=== PATIENT | male | born 1980 | race Two or more races ===

== ENCOUNTER 2025-06-30 15:40 | Inpatient (IN) | payer MEDICAID, SELFPAY ==
[2025-06-30 15:43] VITALS: BP 116/76; PULSE 84; RESP 16; TEMP 36.6; O2SAT 97; BMI 29.7
[2025-06-30 15:53] VITALS: PULSE 86; RESP 18; O2SAT 99
--- NOTE | 2025-06-30 16:03 | PD.EDABDPN ---
ED Abdominal Pain RME/HPI General Chief Complaint: Abdominal Pain Stated complaint: ABD PAIN Time seen by provider: 06/30/25 15:59 Arrival date/time: 06/30/25 15:40 RME / HPI RME / HPI narrative: 45 year old male with history of cholecystectomy 6 years ago otherwise no other chronic medical hx reported presents to the ED BIBA from home for evaluation of epigastric abdominal pain beginning this morning. No radiation. Described as a burning sensation, rating 7/10 in severity. Accompanied by nausea and one episode of watery diarrhea. Denies taking any medications at home. Denies fever, chills, sweating. Denies chest pain, cough, shortness of breath. Denies vomiting. Denies dysuria, urinary frequency and urgency. Related Data Home Medications ?Medication ?Instructions ?Recorded ?Confirmed No Known Home Medications 07/01/25 07/01/25 Allergies Allergy/AdvReac Type Severity Reaction Status Date / Time shrimp Allergy Severe throat Verified 07/01/25 07:09 demetrius Review of Systems Review of Systems Systems Reviewed: All systems reviewed, normal except as documented Past Medical History Past Medical History CARDIAC: Negative Congestive Heart Failure RESPIRATORY: Negative Chronic Obstructive Pulmonary Disease (COPD) GASTROINTESTINAL: Positive Gall Bladder Disease GENITOURINARY: Negative Renal Disease ENDOCRINE: Negative Diabetes Mellitus Type 1 or Diabetes Mellitus Type 2 Social History SMOKING STATUS: Never smoker ED Exam Narrative Physical exam: GENERAL APPEARANCE: alert and oriented x 4, well-developed, well-nourished, diaphoretic HEENT: Normocephalic, atraumatic; pupils equal, round, reactive to light; EOMI; mucous membranes pink, moist; oropharynx clear NECK: Supple LUNGS: CTABL; no wheezes, no rales, no rhonchi HEART: Regular rate, regular rhythm; normal S1, S2; no murmurs ABDOMEN: non distended; normal BS; soft, epigastric and RUQ tenderness with mild guarding, no rebound; no masses, no organomegaly, no hernia BACK: no CVA tenderness EXTREMITIES: atraumatic; no edema NEUROLOGIC: awake; alert and oriented x4; cranial nerves II-XII grossly intact; no focal sensory or motor deficits PSYCHIATRIC: appropriate mood and affect SKIN: Increased warmth, diaphoretic, normal color; no rashes Course Quality Measures none Orders Category Date Time Status COVID-19 Screening Questionnaire NOW Care 06/30/25 20:37 Completed Decision to Admit X1 Care 06/30/25 20:37 Completed EKG (ED ONLY) *Do not use* NOW Care 06/30/25 16:15 Completed Insert IV NOW Care 06/30/25 16:27 Completed NPO NOW Care 06/30/25 20:44 Completed Consult to General Surgery Stat Cons 06/30/25 20:[address] abdomen pelvis wo con Stat Exams 06/30/25 18:42 Completed EKG (ED Only) Stat Exams 06/30/25 16:15 Draft US abdomen limited Stat Exams 06/30/25 17:30 Completed Alcohol, Blood Medical Stat Lab 06/30/25 16:29 Completed Amylase Stat Lab 06/30/25 16:29 Completed Bilirubin,Direct Stat Lab 06/30/25 16:29 Completed CBC Stat Lab 06/30/25 16:24 Completed Comprehensive Metabolic Panel Stat Lab 06/30/25 16:24 Completed Drug Screen,Urine Stat Lab 06/30/25 19:34 Completed Lipase Stat Lab 06/30/25 16:24 Completed Magnesium Stat Lab 06/30/25 16:24 Completed Troponin I Stat Lab 06/30/25 16:24 Completed UA, C/S IF [Urinalysis, C/S if Indicated] Stat Lab 06/30/25 19:34 Completed Urine Culture Stat Lab 06/30/25 19:34 Completed Cefoxitin [Mefoxin] 2 gm Med 07/01/25 06:00 Discontinued SODIUM CHLORIDE 0.9% (Popper) [Ns 0.9% (P)] 50 ml IV Q6HR Cefoxitin [Mefoxin] 2 gm Med 06/30/25 21:30 Discontinued SODIUM CHLORIDE 0.9% (Popper) [Ns 0.9% (P)] 50 ml IV X1 Famotidine Inj [Pepcid Inj] Med 06/30/25 18:41 Discontinued 20 mg IVP X1 ONE HYDROmorphone INJ [Dilaudid Inj] Med 06/30/25 18:41 Discontinued 1 mg IVP X1 ONE Morphine Inj Med 06/30/25 16:15 Discontinued 5 mg IVP X1 ONE Ondansetron Inj [Zofran Inj] Med 06/30/25 16:15 Discontinued 4 mg IVP X1 ONE Pantoprazole Inj [Protonix Inj] Med 06/30/25 18:41 Discontinued 40 mg IVP X1 ONE Piper/Tazo 3.375 gm Premix [Zosyn] Med 06/30/25 20:31 Discontinued 3.375 gm in 50 ml IV X1 Sodium Chloride 0.9% 1000 ml [Ns] 1,000 ml Med 06/30/25 16:15 Discontinued IV 999 mls/hr Sodium Chloride 0.9% 1000 ml [Ns] 1,000 ml Med 06/30/25 17:29 Discontinued IV 999 mls/hr Vital Signs Vital signs: Vital Signs Temperature 97.9 F 06/30/25 15:43 Pulse Rate 84 06/30/25 15:43 Respiratory Rate 16 06/30/25 15:43 Blood Pressure 116/76 06/30/25 15:43 Pulse Oximetry (%) 97 06/30/25 15:43 Oxygen Delivery Method Room Air 06/30/25 15:43 Pulse ox is 97% on room air which is adequate. Abdominal Pain MDM MDM Narrative MDM Narrative:: Cora Seaman am scribing for and in the presence of Dr. Bess. 1800: Patient signed out to Dr. Willson pending labs, imaging, and final disposition. Patient data External records reviewed:: EMS form Clinical information provided by:: patient and EMS Social determinants that could affect healthcare access:: none Patient has the following chronic illnesses:: s/p cholecystectomy How is presenting disease/condition affected by chronic disease/condition?: uneffected by Evaluation data The following diagnostics were reviewed and interpreted by me:: lab results Lab and/or radiology exams considered but not ordered:: None Interpretation Summary: leukocytosis at 15.2 Total bili 2.8, no previous for comparison Medications / Prescriptions Medications or Prescriptions considered but not ordered:: None Medication administrations:: Medication Administration History Discontinued Medications Acetaminophen (Acetaminophen 325 Mg Tablet) 650 mg PO Q6H PRN PRN Reason: Fever >101.5 Stop: 07/30/25 22:18 Hydrocodone Bitart/Acetaminophen (Hydrocodone/Apap 5/325 Tablet) 1 tab PO Q6HR PRN PRN Reason: PAIN SCALE 4-10(Mod-Sev Stop: 07/06/25 09:09 Hydrocodone Bitart/Acetaminophen (Hydrocodone/Apap 5/325 Tablet) 1 tab PO Q6HR PRN PRN Reason: PAIN SCALE 4-6 Stop: 07/06/25 09:09 Last Admin: 07/03/25 11:00 Dose: 1 tab Documented By: Admin: 07/03/25 03:21 Dose: 1 tab Documented By: Admin: 07/02/25 16:04 Dose: 1 tab Documented By: Admin: 07/02/25 03:05 Dose: 1 tab Documented By: YULY Bupivacaine HCl (Bupivacaine Mpf 0.5% 30 Ml Vial) Confirm Administered Dose 30 ml .ROUTE .STK-MED ONE Stop: 07/01/25 07:12 Dexamethasone Sodium Phosphate (Dexamethasone Sod Phos Inj 10 Mg/Ml Vial) Confirm Administered Dose 10 mg .ROUTE .STK-MED ONE Stop: 07/01/25 06:49 Docusate Sodium (Docusate Sod 100 Mg Capsule) 100 mg PO BID DANYELLE; Protocol Stop: 07/31/25 09:09 Last Admin: 07/03/25 08:18 Dose: 100 mg Documented By: Admin: 07/02/25 20:08 Dose: 100 mg Documented By: Admin: 07/02/25 08:22 Dose: 100 mg Documented By: Admin: 07/01/25 20:22 Dose: 100 mg Documented By: Admin: 07/01/25 09:29 Dose: 100 mg Documented By: augustus Esmolol HCl (Esmolol Inj 10 Mg/Ml Vial 10 Ml) Confirm Administered Dose 100 mg .ROUTE .STK-MED ONE Stop: 07/01/25 09:46 Famotidine (Famotidine Inj 10 Mg/Ml Vial 2 Ml) 20 mg IVP X1 ONE Stop: 06/30/25 18:42 Last Admin: 06/30/25 18:59 Dose: 20 mg Documented By: PIPO Fentanyl Citrate (Fentanyl Cit Inj 50 Mcg/Ml Amp 2ml) Confirm Administered Dose 200 mcg .ROUTE .STK-MED ONE Stop: 07/01/25 06:48 Fentanyl Citrate (Fentanyl Cit Inj 50 Mcg/Ml Amp 2ml) Confirm Administered Dose 100 mcg .ROUTE .STK-MED ONE Stop: 07/01/25 07:47 Gentamicin Sulfate (Gentamicin Inj 40 Mg/Ml Vial 2 Ml) Confirm Administered Dose 160 mg .ROUTE .STK-MED ONE Stop: 07/01/25 07:46 Hydromorphone HCl (Hydromorphone Inj 2 Mg/Ml Vial) 1 mg IVP X1 ONE Stop: 06/30/25 18:42 Last Admin: 06/30/25 18:58 Dose: 1 mg Documented By: PIPO Sodium Chloride (Ns) 1,000 mls @ 999 mls/hr IV .Q1H1M ONE Stop: 06/30/25 17:15 Last Infusion: 06/30/25 17:26 Dose: Infused Documented By: Admin: 06/30/25 16:45 Dose: 999 mls/hr Documented By: JOSE GUADALUPE Sodium Chloride (Ns) 1,000 mls @ 999 mls/hr IV .Q1H1M ONE Stop: 06/30/25 18:29 Last Infusion: 06/30/25 19:05 Dose: Infused Documented By: Admin: 06/30/25 18:04 Dose: 999 mls/hr Documented By: PIPO Piperacillin/Tazobactam/Dextrose (Zosyn) 3.375 gm in 50 mls @ 100 mls/hr IV X1 ONE Stop: 06/30/25 21:00 Last Infusion: 06/30/25 21:30 Dose: Infused Documented By: Admin: 06/30/25 21:00 Dose: 100 mls/hr Documented By: IKER Cefoxitin Sodium 2 gm/ Sodium (Chloride) 50 mls @ 100 mls/hr IV Q6HR DANYELLE Stop: 07/08/25 05:59 Last Admin: 07/03/25 12:10 Dose: Not Given Documented By: KHANH Non-Admin Reason: patient discharged Admin: 07/03/25 05:14 Dose: 100 mls/hr Documented By: Infusion: 07/02/25 23:39 Dose: Infused Documented By: Admin: 07/02/25 23:09 Dose: 100 mls/hr Documented By: Infusion: 07/02/25 17:44 Dose: Infused Documented By: Admin: 07/02/25 17:14 Dose: 100 mls/hr Documented By: Infusion: 07/02/25 11:55 Dose: Infused Documented By: Admin: 07/02/25 11:25 Dose: 100 mls/hr Documented By: Infusion: 07/02/25 05:47 Dose: Infused Documented By: Admin: 07/02/25 05:17 Dose: 100 mls/hr Documented By: Infusion: 07/01/25 23:30 Dose: Infused Documented By: Admin: 07/01/25 23:00 Dose: 100 mls/hr Documented By: Infusion: 07/01/25 17:37 Dose: Infused Documented By: Admin: 07/01/25 17:07 Dose: 100 mls/hr Documented By: augustus Infusion: 07/01/25 13:14 Dose: Infused Documented By: augustus Admin: 07/01/25 12:44 Dose: 100 mls/hr Documented By: augustus Infusion: 07/01/25 05:30 Dose: Infused Documented By: augustus Admin: 07/01/25 05:00 Dose: 100 mls/hr Documented By: YULY Cefoxitin Sodium 2 gm/ Sodium (Chloride) 50 mls @ 100 mls/hr IV X1 ONE Stop: 06/30/25 21:59 Last Infusion: 06/30/25 22:20 Dose: Infused Documented By: Admin: 06/30/25 21:50 Dose: 100 mls/hr Documented By: KEVYN Acetaminophen (Ofirmev Inj) Confirm Administered Dose 100 mls @ ud IV .STK-MED ONE Stop: 07/01/25 06:56 Magnesium Sulfate (Magnesium Sulfate Ivpb) 4 gm in 50 mls @ 12.5 mls/hr IV X1 ONE Stop: 07/01/25 12:28 Last Admin: 07/01/25 09:28 Dose: 12.5 mls/hr Documented By: augustus Potassium Chloride 20 meq/ (Dextrose/Lactated Ringer's) 1,010 mls @ 100 mls/hr IV .Q10H6M DANYELLE Stop: 07/31/25 09:09 Last Admin: 07/02/25 08:21 Dose: Not Given Documented By: JESSIE Non-Admin Reason: Discontinued Admin: 07/01/25 22:40 Dose: 100 mls/hr Documented By: Infusion: 07/01/25 19:40 Dose: Infused Documented By: Admin: 07/01/25 09:34 Dose: 100 mls/hr Documented By: augustus Lidocaine HCl (Lidocaine Inj Pf 1% 2 Ml Vial) Confirm Administered Dose 2 ml .ROUTE .STK-MED ONE Stop: 07/01/25 06:54 Lidocaine HCl (Lidocaine Jelly 2% 5 Ml Tube) Confirm Administered Dose 5 ml .ROUTE .STK-MED ONE Stop: 07/01/25 06:56 Morphine Sulfate (Morphine Sulf Inj 10 Mg/Ml Vial) 5 mg IVP X1 ONE Stop: 06/30/25 16:16 Last Admin: 06/30/25 16:47 Dose: 5 mg Documented By: JOSE GUADALUPE Morphine Sulfate (Morphine Sulf Inj 10 Mg/Ml Vial) 2 mg IVP Q3H PRN PRN Reason: PAIN SCALE 7-10 (Severe Stop: 07/05/25 22:24 Morphine Sulfate (Morphine Sulf Inj 4 Mg/Ml Vial) 2 mg IVP Q3H PRN PRN Reason: PAIN SCALE 7-10 (Severe Stop: 07/05/25 22:24 Last Admin: 07/02/25 09:52 Dose: 2 mg Documented By: JESSIE Ondansetron HCl (Ondansetron Inj 2 Mg/Ml Inj 2 Ml) 4 mg IVP X1 ONE Stop: 06/30/25 16:16 Last Admin: 06/30/25 16:46 Dose: 4 mg Documented By: JOSE GUADALUPE Ondansetron HCl (Ondansetron Inj 2 Mg/Ml Inj 2 Ml) 4 mg IVP Q6H PRN; Protocol PRN Reason: NAUSEA OR VOMITING Stop: 07/30/25 22:18 Pantoprazole Sodium (Pantoprazole Inj 40 Mg Vial) 40 mg IVP X1 ONE Stop: 06/30/25 18:42 Last Admin: 06/30/25 18:58 Dose: 40 mg Documented By: PIPO Phenylephrine HCl (Phenylephrine Inj 10 Mg/Ml Vial) Confirm Administered Dose 10 mg .ROUTE .STK-MED ONE Stop: 07/01/25 06:49 Potassium Phos/Sodium Phos (Naph,[facility] Mbdb 1 Packet (1.5 Gm)) 1 packet PO X1 ONE Stop: 07/02/25 08:25 Last Admin: 07/02/25 08:36 Dose: 1 packet Documented By: JESSIE Propofol (Propofol Inj 10 Mg/Ml Vial 20 Ml) Confirm Administered Dose 200 mg IV .STK-MED ONE Stop: 07/01/25 06:48 Rocuronium [place] (Rocuronium Inj 10 Mg/Ml Vial 10 Ml) Confirm Administered Dose 100 mg .ROUTE .STK-MED ONE Stop: 07/01/25 06:48 Sugammadex Sodium (Sugammadex Inj 100 Mg/Ml 2ml Vial) Confirm Administered Dose 200 mg .ROUTE .STK-MED ONE Stop: 07/01/25 07:49 See above Consultations Consultation(s) initiated? (list below): No Diagnosis Differential diagnosis abdominal pain: abdominal pain, gastroenteritis and other (cholelithiasis, cholecystitis) Most likely diagnosis given after review of the tests above:: Abdominal pain Admission Indicated Admission indicated?: not indicated Explain why admission is indicated or not indicated:: Signed out pending final dispo. Admission Request Was there a request for admission?: No Disposition Plan Disposition Plan: other (specify) (signed out ) Discharge Plan Plan Patient Disposition: Admit Acute Care w/in Hospital Problem List Clinical Impression: Appendicitis
--- NOTE | 2025-06-30 16:15 | EKG_ITS ---
[facility] Test Date: 2025-06-30 Pat Name: YOMI BATRES Department: Room: - Gender: Male Contact Center Associate: : 1980 Requested By: Dora Maldonado Order Number: [id number] Reading MD: Dora Maldonado Measurements Intervals [place] Rate: 88 P: 64 CA: 179 QRS: 88 QRSD: 80 T: 53 QT: 359 QTc: 435 Interpretive Statements SINUS RHYTHM No previous ECG available for comparison /store/S0/[id number]/ecg/[id number].pdf
[2025-06-30 16:39] LABS: Basophils # (Auto) 0.0 Thou/mm3 (0.0-0.2); Basophils % (Auto) 0 % (0-2.5); Eosinophils # (Auto) 0.2 Thou/mm3 (0.0-0.5); Eosinophils % (Auto) 1 % (0-10); Hematocrit 49.7 % (41.0-53.0); Hemoglobin 17.3 g/dL (13.5-16.0); Immature Granulocytes Auto 0.05 Thou/mm3 (0.00-0.00); Lymphocytes # (Auto) 1.2 Thou/mm3 (1.0-4.8); Lymphocytes % (Auto) 8 % (10-50); Mean Corpuscular HGB Conc 34.8 g/dl (31.0-37.0); Mean Corpuscular Hemoglobin 30.5 pg (25.0-35.0); Mean Corpuscular Volume 88 fL (80-100); Monocytes # (Auto) 0.7 Thou/mm3 (0.0-0.8); Monocytes % (Auto) 4 % (0-12); Neutrophils # (Auto) 13.1 Thou/mm3 (1.8-7.7); Neutrophils % (Auto) 86 % (37-80); Nucleated Red Blood Cell # 0.00 Thou/mm3 (0.00-0.00); Nucleated Red Blood Cell % 0 /100 WBC (0); Platelet Count 221 Thou/mm3 (140-440); RDW Standard Deviation 41.0 fL (35.1-43.9); Red Blood Count 5.68 Miln/mm3 (4.50-5.90); White Blood Count 15.2 Thou/mm3 (3.8-10.6)
[2025-06-30] MEDS: SODIUM CHLORIDE 0.9% 1000 ML 1,000 ML 999 ML IV ×2 (16:45→18:04)
[2025-06-30] MEDS: ONDANSETRON INJ 2 MG/ML INJ 2 ML 4 MG IVP (16:46)
[2025-06-30] MEDS: MORPHINE SULF INJ 10 MG/ML VIAL 5 MG IVP (16:47)
[2025-06-30 16:58] LABS: Alanine Aminotransferase 20 U/L (10-49); Albumin, Serum 4.6 gm/dL (3.5-5.0); Albumin/Globulin Ratio 1.9 (1.2-2.2); Alkaline Phosphatase 99 U/L (46-116); Anion Gap 13 (7-16); Aspartate Amino Transferase 19 U/L (0-34); BUN/Creatinine Ratio 14 Ratio (12-20); Bilirubin,Total 2.8 mg/dL (0.3-1.2); Blood Urea Nitrogen 10 mg/dL (9-23); Calcium 10.0 mg/dL (8.3-10.6); Calcium (Corrected) 10.0 mg/dL (8.5-10.1); Carbon Dioxide 24.3 mMol/L (20.0-31.0); Chloride 103 mMol/L (98-107); Creatinine (Component) 0.7 mg/dL (0.6-1.3); Estimated Creatinine Clearance 139.7 mL/min (>60); Globulin 2.4 gm/dL (2.3-3.5); Glucose 114 mg/dL (74-106); Lipase 22 U/L (12-53); Magnesium 1.9 mg/dL (1.6-2.6); Osmolality,Calculated 279 (275-295); Potassium 3.5 mMol/L (3.4-5.1); Sodium 140 mMol/L (136-145); Total Protein 7.0 gm/dL (5.7-8.2); Troponin I < 0.002 ng/mL (0.0-0.045); eGFR > 60 See Note
--- NOTE | 2025-06-30 17:30 | XR_ITS ---
Examination: Abdomen sonogram, Limited Date and time of exam: June 30, 2025, 1948 hrs. Indications: Right upper abdominal pain today Technique: Real-time jara scale transabdominal sonographic images of the upper abdomen obtained. Findings: Absent gallbladder Common bile duct 0.7 cm no stones. Pancreatic head 3.0 cm. Liver 18.1 cm fatty infiltration no focal liver lesions. Normal hepatopedal portal venous flow. Patent IVC. Impression: Mildly prominent common bile duct 0.7 cm, clinical correlation advised. If biliary colic is a clinical consideration, recommend MRCP follow-up
--- NOTE | 2025-06-30 18:06 | PC.NURSE ---
patient BIBA for abdominal pain that started yesterday. Patient describes pain as sharp and burning sensation, denies N/V/D or melena. Patient alert and oreinted, New IV started. Morphine given for pain. vital signs stable at this time
--- NOTE | 2025-06-30 18:26 | PD.EDADDENDU ---
Emergency Room Addendum <Nika Castellano - Last Filed: 06/30/25 21:35> Addendum Narrative: I took over the care from Dr. Bess at 6 PM on 06/30/2025, see her notes for complete H&P and ED course. I reviewed all diagnostic test results. My review of the abdominal ultrasound report is NAD. My review of the CT abdomen pelvis report is appendicitis. At this point, diagnoses include: 1. Acute appendicitis Treatment here from me included: 1. Pepcid 2. Dilaudid 3. Protonix 4. Zosyn I discussed the case with our general surgeon and hospitalist. About the presentation and exam and diagnostics and treatments here. And need of further care in the hospital. Will accept the patient. Brien Willson MD <Brien Willson MD - Last Filed: 07/01/25 01:40> Addendum Narrative: I took over the care from Dr. Bess at 6 PM on 06/30/2025, see her notes for complete H&P and ED course. I reviewed all diagnostic test results. At this point, diagnoses include: 1. Acute appendicitis Treatment here from me included: IV fluid and pain meds and Zosyn I discussed the case with our general surgeon (Dr. Ram) and our hospitalist service. About the presentation and exam and diagnostics and treatments here. And need of further care in the hospital. Will accept the patient. Brien Willson MD
--- NOTE | 2025-06-30 18:42 | XR_ITS ---
Examination: CT abdomen and pelvis without contrast. Coronal 3-D reconstructions. Sagittal 2-D reconstructions. Date and time of exam:August 30, 2025 1911 hrs. Indications: Nausea vomiting abdominal pain diarrhea today CTDI: vol (mGy): 8.72 DLP: (mGycm): 573 Technique: Axial images of the abdomen have been obtained, 3 mm slice thickness Intravenous contrast material has not been administered. Low dose protocols were performed. One or more of the following dose reduction techniques were used; automated exposure control, adjustment of the mA and/or KV according to patient size, use of iterative reconstruction technique. Findings: No focal liver or splenic lesions Fatty infiltration throughout the liver Absent gallbladder No pancreatic or adrenal mass 4 mm left 3 mm 1 mm right renal calculi, no hydronephrosis or ureteral calculi Aorta normal size No bowel obstruction No nonspecific colitis or diverticulitis pattern Fluid-filled enlarged appendix, coronal images 73 through 59 with appendicolith and prominent periappendiceal inflammatory change No pelvic abscess Urinary bladder is intact Impression: Bilateral renal calculi Acute appendicitis, no localized perforation or pelvic abscess
[2025-06-30 18:50] VITALS: BP 119/87; PULSE 106; RESP 18; O2SAT 98
[2025-06-30] MEDS: HYDROmorphone INJ 2 MG/ML VIAL 1 MG IVP (18:58)
[2025-06-30] MEDS: FAMOTIDINE INJ 10 MG/ML VIAL 2 ML 20 MG IVP (18:59)
[2025-06-30 19:29] VITALS: BP 107/65; PULSE 97; RESP 16; TEMP 36.8; O2SAT 96
[2025-06-30 19:47] LABS: Collection Type, Urine Clean Catch; RBC,Urine 0 /hpf (0-3)
[2025-06-30 19:56] LABS: Amorphous Crystals,Urine Present (Absent); Bacteria,Urine 3+; Bilirubin,Urine Negative (Negative); Blood,Urine Negative (Negative); Clarity,Urine Clear (Clear/Hazy); Color,Urine Yellow (Lt Yel-Yel); Glucose, Urine Negative (Negative); Ketones,Urine 3+ (Negative); Leukocyte Esterase,Urine Negative (Negative); Nitrite,Urine Negative (Negative); PH,Urine 5.5 (5.0-7.0); Protein,Urine Negative (Neg - Trace); Specific Gravity,Urine 1.026 (1.001-1.035); Squamous Epithelial Cell,Urine < 1 /hpf (0-5); Urobilinogen,Urine Negative mg/dL (0.0-1.0); WBC,Urine 2 /hpf (0-5)
[2025-06-30 20:05] LABS: Culture Indicated,Urine Yes; Sperm,Urine Present
[2025-06-30 20:15] LABS: Amphetamine/Methamp Scrn,U Positive (Negative); Barbiturate Screen,Urine Negative (Negative); Benzodiazepines Screen,Urine Negative (Negative); Benzoylecgonine Screen, Ur Negative (Negative); Fentanyl Screen,Urine Negative (Negative); Opiate Screen,Urine Positive (Negative); THC Screen,Urine Negative (Negative)
[2025-06-30 21:00] VITALS: BP 103/65; PULSE 94; RESP 16; TEMP 37.1; O2SAT 95
[2025-06-30] MEDS: PIPER/TAZO 3.375 GM PREMIX 3.375 GM/50 ML BAG IV (21:00)
[2025-06-30 21:19] LABS: Alcohol, Blood Medical < 3.0 mg/dL (0-10.0); Bilirubin,Direct 0.8 mg/dL (0.0-0.3)
[2025-06-30 21:35] LABS: Amylase 92 U/L (30-118)
[2025-06-30] MEDS: CEFOXITIN 2 GM in SODIUM CHLORIDE 0.9% (Popper) 50 ML IV (21:50)
--- NOTE | 2025-06-30 22:37 | PD.RESHP ---
Documentation for date of: 06/30/25 [facility] History of Present Illness Chief complaint: Abdominal pain History of present illness: Patient is a 45 year-old with no significant past medical history presented to the ED on 06/30/2025 with chief complain of abdominal pain. Patient reports progressively worse abdominal pain that started on sunday last week. Patient took Tums but noted no alleviation of pain. Reports sharp, burning abdominal pain, rated 8 out of 10 intensity. Associated with nausea and 1 episode of watery diarrhea this morning. Patient denies vomiting, fever, chills, sweating, chest pain, shortness of breath and urinary frequency and urgency. ED Course: -Initial vitals were BP 116/66, pulse 84, RR 16, temp 97.9, O2 sat 97% on room air. -Labs significant for WBC 15.2, hemoglobin 17.8, T. bili 2.8, T. bili 0.8. Urine tox positive for opiates and methamphetamine -Imaging included abdominal ultrasound that showed absent gallbladder, abd/pelvis CT bilateral renal calculi, making appendicitis with no localized perforation of pelvic abscess. -In the ED, patient was given 1 L of NS, Zofran, 5mg morphine, 1mg hydromorphone, Protonix, famotidine, Zosyn -Patient was admitted for acute appendicitis evaluation and management Review of Systems Review of systems otherwise negative except what is mentioned above. Past Medical History: Unremarkable Family History: Diabetes mellitus in family Surgical History: cholecystectomy Social History: Denies history of smoking, denies recreational drug use (however utox (+) amphetamine). Occasional social drinker. Current Medications: Allergies: Shrimp Exam Vital Signs Temp Pulse Resp BP Pulse Ox O2 Del Method 98.7 F 94 16 103/65 95 Room Air 06/30/25 21:06/30/25 21:00 06/30/25 21:06/30/25 21:06/30/25 21:06/30/25 21:00 Narrative Exam General: Alert, moderate distress and ill appearing Skin: Warm, dry, intact. No rash or ecchymoses. Head: Normocephalic, atraumatic. Eye: Normal conjunctiva, PERRL. Throat: Oral mucosa moist. No obvious lesions in oropharynx. Cardiovascular: Regular rate and rhythm, no murmur, +S1/S2. Respiratory: Lungs are clear to auscultation, respirations unlabored, no crackles, no wheezing. Gastrointestinal: McBurney's point tenderness, rebound tendernes. Extremities: No edema, no cyanosis, no clubbing. Neuro: Alert and oriented x3.No focal deficits observed. Conversant, moving all extremities. No overt cerebellar signs/incoordination. Psychiatric: Cooperative, appropriate affect Results: Labs 07/01/25 04:28 07/01/25 04:28 Labs: Short CBC 06/30/25 Range/Units 16:24 WBC 15.2 H (3.8-10.6) Thou/mm3 Hgb 17.3 H (13.5-16.0) g/dL Hct 49.7 (41.0-53.0) % Plt Count 221 (140-440) Thou/mm3 BMP 06/30/25 16:24 Sodium 140 Potassium 3.5 Chloride 103 Carbon Dioxide 24.3 BUN 10 Creatinine 0.7 Glucose 114 H Calcium 10.0 Cardiac Enzymes 06/30/25 Range/Units 16:24 Troponin I < 0.002 (0.0-0.045) ng/mL Liver Function 06/30/25 06/30/25 Range/Units 16:24 16:29 Total Bilirubin 2.8 H (0.3-1.2) mg/dL Direct Bilirubin 0.8 H (0.0-0.3) mg/dL AST 19 (0-34) U/L ALT 20 (10-49) U/L Alkaline Phosphatase 99 (46-116) U/L Albumin 4.6 (3.5-5.0) gm/dL Urine 06/30/25 Range/Units 19:34 Urine Color Yellow (Lt Yel-Yel) Urine Clarity Clear (Clear/Hazy) Urine pH 5.5 (5.0-7.0) Ur Specific [place] 1.026 (1.001-1.035) Urine Protein Negative (Neg - Trace) Urine Glucose (UA) Negative (Negative) Quality Measures Quality Measures none Medications Home Medications and Allergies Home Medications ?Medication ?Instructions ?Recorded ?Confirmed ?Type No Known Home Medications 07/01/25 07/01/25 History Allergies Allergy/AdvReac Type Severity Reaction Status Date / Time shrimp Allergy Severe throat Verified 07/01/25 07:09 swells Visit Medications Acetaminophen (Acetaminophen 325 Mg Tablet) 650 mg PO Q6H PRN PRN Reason: Fever >101.5 Stop: 07/30/25 22:18 Cefoxitin Sodium 2 gm/ Sodium (Chloride) 50 mls @ 100 mls/hr IV Q6HR DANYELLE Stop: 07/08/25 00:00 Morphine Sulfate (Morphine Sulf Inj 10 Mg/Ml Vial) 2 mg IVP Q3H PRN PRN Reason: PAIN SCALE 7-10 (Severe Stop: 07/05/25 22:24 Ondansetron HCl (Ondansetron Inj 2 Mg/Ml Inj 2 Ml) 4 mg IVP Q6H PRN; Protocol PRN Reason: NAUSEA OR VOMITING Stop: 07/30/25 22:18 Discontinued Medications Famotidine (Famotidine Inj 10 Mg/Ml Vial 2 Ml) 20 mg IVP X1 ONE Stop: 06/30/25 18:42 Last Admin: 06/30/25 18:59 Dose: 20 mg Hydromorphone HCl (Hydromorphone Inj 2 Mg/Ml Vial) 1 mg IVP X1 ONE Stop: 06/30/25 18:42 Last Admin: 06/30/25 18:58 Dose: 1 mg Sodium Chloride (Ns) 1,000 mls @ 999 mls/hr IV .Q1H1M ONE Stop: 06/30/25 17:15 Last Infusion: 06/30/25 17:26 Dose: Infused Sodium Chloride (Ns) 1,000 mls @ 999 mls/hr IV .Q1H1M ONE Stop: 06/30/25 18:29 Last Infusion: 06/30/25 19:05 Dose: Infused Piperacillin/Tazobactam/Dextrose (Zosyn) 3.375 gm in 50 mls @ 100 mls/hr IV X1 ONE Stop: 06/30/25 21:00 Last Infusion: 06/30/25 21:30 Dose: Infused Cefoxitin Sodium 2 gm/ Sodium (Chloride) 50 mls @ 100 mls/hr IV X1 ONE Stop: 06/30/25 21:59 Last Infusion: 06/30/25 22:20 Dose: Infused Morphine Sulfate (Morphine Sulf Inj 10 Mg/Ml Vial) 5 mg IVP X1 ONE Stop: 06/30/25 16:16 Last Admin: 06/30/25 16:47 Dose: 5 mg Ondansetron HCl (Ondansetron Inj 2 Mg/Ml Inj 2 Ml) 4 mg IVP X1 ONE Stop: 06/30/25 16:16 Last Admin: 06/30/25 16:46 Dose: 4 mg Pantoprazole Sodium (Pantoprazole Inj 40 Mg Vial) 40 mg IVP X1 ONE Stop: 06/30/25 18:42 Last Admin: 06/30/25 18:58 Dose: 40 mg Assessment & Plan Plan Patient is a 45 year-old with no significant past medical history presented to the ED on 06/30/2025 with chief complain of abdominal pain. Admitted for acute appendicitis and management #Acute Appendicitis Patient presentation of significant right lower quadrant pain with rebound tenderness at McBurney's point along with signs and symptoms of nausea, elevated WBC 15.2, T.bilirubin 2.8, D.Bilirubin 9.8. and abd /pelvis CT findings strongly suggest appendicitis. LFT within normal limit. Amylse 92, Lipase 22 CT abd/pelvis: showed fluid-filled enlarged appendix, with appendicolith and prominent periappendiceal inflammatory changes. No localized perforation or pelvic abscees. Abd US: Mildly prominent common bile duct 0.7 cm and absent gallbladder - IV morphine 5mg Q3H for pain - Zofran for nausea - Surgery Dr. Ram consulted started on cefoxitin 2gm IV pt n.p.o. possible surgery tomorrow - aPTT,PT and INR - continue to CMP #CT finding of Bilateral Renal calcuci Incidental finding of bilateral renal calculi on CT abdominal/pelvis. Patient has no active symptoms of urinary frequency and dysuria, hematuria, flank pain that might suggest nephrolithiasis. -Continue to monitor #Methamphetamine abuse Counseled regarding meth use and need to stop immediately #Hyperbilirubinemia Mild, possibly 2/2 substance use Continue to monitor Hospital management: Lines: peripheral IV Diet: NPO GI prophylaxis: pantoprazole DVT prophylaxis: SCDs Disposition: med surg acute appendicitis CODE STATUS: Full code Patient seen and assessed under supervision of attending physician . Carleen Zavaleta MD PGY-1, Internal Medicine Please note: this document was transcribed using voice recognition technology; minor inaccuracies may be present. Attending Provider Attestation/Addendum After examination of the patient and review of the clinical data I feel that this patient needs admission to the hospital for further treatment/evaluation. I Violette Squires MD, attest that I was physically present for simms portions of evaluation, and examined patient, labs and imagings and plan of care were discussed with IM residents team, and I agree with the findings and plans documented above.
[2025-06-30 22:50] VITALS: PULSE 106; RESP 24; RESP 96
[2025-07-01] VITALS (14 sets, daily range): BP systolic 94–125; BP diastolic 55–80; PULSE 72–115; RESP 14–94; TEMP 35.6–37.6; O2SAT 92–99; BMI 31.6
--- NOTE | 2025-07-01 04:46 | PC.NURSE ---
Report received, pt arrived to room 377 via gurney with significant other at side, alert/oriented call light placed within reach
[2025-07-01] MEDS: CEFOXITIN 2 GM in SODIUM CHLORIDE 0.9% (Popper) 50 ML IV ×4 (05:00→23:00)
[2025-07-01 06:18] LABS: Basophils # (Auto) 0.0 Thou/mm3 (0.0-0.2); Basophils % (Auto) 0 % (0-2.5); Eosinophils # (Auto) 0.0 Thou/mm3 (0.0-0.5); Eosinophils % (Auto) 0 % (0-10); Hematocrit 49.2 % (41.0-53.0); Hemoglobin 16.8 g/dL (13.5-16.0); Immature Granulocytes Auto 0.09 Thou/mm3 (0.00-0.00); Lymphocytes # (Auto) 1.3 Thou/mm3 (1.0-4.8); Lymphocytes % (Auto) 6 % (10-50); Mean Corpuscular HGB Conc 34.1 g/dl (31.0-37.0); Mean Corpuscular Hemoglobin 30.8 pg (25.0-35.0); Mean Corpuscular Volume 90 fL (80-100); Monocytes # (Auto) 1.2 Thou/mm3 (0.0-0.8); Monocytes % (Auto) 6 % (0-12); Neutrophils # (Auto) 18.6 Thou/mm3 (1.8-7.7); Neutrophils % (Auto) 88 % (37-80); Nucleated Red Blood Cell # 0.00 Thou/mm3 (0.00-0.00); Nucleated Red Blood Cell % 0 /100 WBC (0); Platelet Count 216 Thou/mm3 (140-440); RDW Standard Deviation 42.5 fL (35.1-43.9); Red Blood Count 5.46 Miln/mm3 (4.50-5.90); White Blood Count 21.2 Thou/mm3 (3.8-10.6)
[2025-07-01 06:36] LABS: Alanine Aminotransferase 17 U/L (10-49); Albumin, Serum 4.7 gm/dL (3.5-5.0); Albumin/Globulin Ratio 2.0 (1.2-2.2); Alkaline Phosphatase 94 U/L (46-116); Anion Gap 15 (7-16); Aspartate Amino Transferase 13 U/L (0-34); BUN/Creatinine Ratio 8 Ratio (12-20); Bilirubin,Total 4.0 mg/dL (0.3-1.2); Blood Urea Nitrogen 7 mg/dL (9-23); Calcium 9.7 mg/dL (8.3-10.6); Calcium (Corrected) 9.7 mg/dL (8.5-10.1); Carbon Dioxide 25.3 mMol/L (20.0-31.0); Chloride 98 mMol/L (98-107); Creatinine (Component) 0.9 mg/dL (0.6-1.3); Estimated Creatinine Clearance 111.9 mL/min (>60); Globulin 2.3 gm/dL (2.3-3.5); Glucose 106 mg/dL (74-106); Magnesium 1.5 mg/dL (1.6-2.6); Osmolality,Calculated 273 (275-295); Phosphorous 3.1 mg/dL (2.4-5.1); Potassium 3.6 mMol/L (3.4-5.1); Sodium 138 mMol/L (136-145); Total Protein 7.0 gm/dL (5.7-8.2); eGFR > 60 See Note
[2025-07-01 06:49] LABS: INR 1.1 (0.9-1.3); Partial Thromboplastin Time 30.4 Seconds (22.0-36.0); Prothrombin Time 11.9 Seconds (9.0-12.2)
--- NOTE | 2025-07-01 07:00 | PC.NURSE ---
Report given to delia
--- NOTE | 2025-07-01 07:10 | PD.SURCONS ---
HPI Consult details Consult date: 06/30/25 Reason for consultation narrative: Right lower quadrant abdominal pain with nausea and vomiting History of present illness: 45-year-old male presented to the emergency department for acute onset of abdominal pain. His pain started 2 days ago and epigastric and periumbilical region. Since earlier today his pain has become persistent and progressively worse, now localized over right lower quadrant. He has had nausea and episode of emesis, but denies fever, chills, constipation or dysuria. She denies having similar symptoms in the past with no recent history of trauma. Review of Systems Constitutional Constitutional: Denies chills and Denies fever(s) Cardiovascular Cardiovascular: Denies chest pain Respiratory Respiratory: Denies cough Gastrointestinal Gastrointestinal: Reports abdominal pain, Reports nausea and Reports vomiting Genitourinary Genitourinary: Denies difficulty urinating Hematologic/Lymphatic Hematologic/Lymphatic: Denies easy bleeding and Denies easy bruising Past Medical History Surgical History OTHER SURGICAL HX: Cholecystectomy, tonsillectomy Social History SMOKING STATUS: Never smoker SUBSTANCE USE: does not use ALCOHOL: Current Meds Home Medications and Allergies Home Medications ?Medication ?Instructions ?Recorded ?Confirmed ?Type No Known Home Medications 07/01/25 07/01/25 History Allergies Allergy/AdvReac Type Severity Reaction Status Date / Time shrimp Allergy Severe throat Verified 07/01/25 07:09 swells Exam Vital Signs Temp Pulse Resp BP Pulse Ox O2 Del Method 99.7 F 115 H 18 125/66 98 Room Air 07/01/25 04:00 07/01/25 04:00 07/01/25 04:00 07/01/25 04:00 07/01/25 04:00 07/01/25 04:00 Constitutional Constitutional: no acute distress Routine Abdominal Exam Abdominal: Present soft, normoactive bowel sounds and tenderness (Right lower quadrant tenderness to palpation with guarding, no rebound tenderness or peritonitis at this time); Absent distended Results Results: Imaging CT scan - abdomen: report reviewed and image reviewed CT scan - pelvis: report reviewed and image reviewed Assessment & Plan Problem List (1) Appendicitis: Status: Acute Plan Keep patient n.p.o. with IV fluids and IV antibiotics and plan for laparoscopic possible open appendectomy. Risks include but not limited to infection, bleeding, injury to bowel, bladder, surround neurovascular structures, abdominal sepsis and or abdominal abscess, need for further procedure and or operation discussed with the patient. Benefits and alternatives explained to him, all his questions answered, he agreed and consented to proceed with the operation. (1) Appendicitis Qualifiers: Acute appendicitis type: unspecified acute appendicitis type Appendicitis type: acute appendicitis Qualified Code(s): K35.80 - Unspecified acute appendicitis
--- NOTE | 2025-07-01 08:11 | SUR.PHASEI ---
0811 Patient arrived to recovery resting comfortably in [facility], on oxygen 8L via oxy mask with an oral airway in place, breathing unlabored, vital signs stable, dressing intact to abdomen; dermabond, no bleeding noted, report received from Dr. Brown and Jennie HERNANDES
--- NOTE | 2025-07-01 08:12 | ESOP_ITS ---
Date of Procedure 07/01/25 Pre Op Diagnosis Acute appendicitis Post Op Diagnosis Acute gangrenous appendicitis with localized peritonitis Procedure Laparoscopic appendectomy Findings Dilated and gangrenous appendix with localized peritonitis and fibrinous exudates, without perforation Procedure Description Patient was brought into the operating room in supine position. After administration of general endotracheal anesthesia, abdomen was prepped and draped in standard surgical manner. A Veress needle was inserted through the umbilicus and pneumoperitoneum was obtained up to 15 mmHg. The Veress needle was removed and a 5 mm umbilical incision was made. A 5 mm trocar was placed and laparoscopic camera was inserted. Under direct visualization a laparoscopic camera a 5 mm trocar placed in suprapubic region and a 10 mm trocar placed in left lower quadrant. The abdomen was inspected, the cecum was identified and followed until the appendix was identified. The appendix was noted to be significantly dilated and gangrenous with fibrinous exudates, but without perforation. A window was created between the appendix and mesoappendix and the appendix was divided near the appendix and cecal junction with blue Endo FIDENCIO stapling device. The mesoappendix was divided with jara Endo FIDENCIO stapling device. The appendix was placed inside an Endo Catch and removed from the abdomen utilizing left lower quadrant trocar site. Abdomen and pelvis copiously and thoroughly washed and irrigated, all the fluids were suctioned and the sucti oned fluid returned clear. Hemostasis was adequate and satisfactory, staple lines were intact without bleeding or any leakage. Left lower quadrant trocar sites fascial defect was closed with 0 Vicryl using Endo closure device. Instruments and trocars removed, pneumoperitoneum was evacuated and the incisions closed with 4-0 Monocryl subcuticular fashion. Instruments, needles and sponge counts were reported to be correct ??2. Patient tolerated the procedure well, was extubated, breathing spontaneously and without difficulty and was transferred to postanesthesia care in stable condition. Anesthesia GETA and local Pathology / specimen Other (Appendix) Estimated Blood Loss 20 Condition Stable Disposition PACU Surgeon Maya Ram MD Surgical Staff Operation Date: 07/01/25 07:00 <No data on this case meets the specified criteria>
--- NOTE | 2025-07-01 08:36 | SUR.PHASEI ---
0836 Report given to Kandi RN, patient meets discharge criteria from recovery resting comfortably in [facility], on oxygen 2L via nasal cannula, breathing unlabored, vital signs stable, denies pain, eating ice chips; tolerating well
--- NOTE | 2025-07-01 08:45 | SUR.PHASEI ---
0836 Report given to Kandi RN, patient meets discharge crieria from recovery, resting comfortably in [place], on oxygen 2L via nasal cannula, breathing unlabored, vital signs stable, denies pain, dressing intact; no bleeding noted, eating ice chips; tolerating well 0845 Patient transported via gurney to room 377 without incident
[2025-07-01] MEDS: Magnesium Sulfate 4 GM Ivpb 4 GM/50 ML BAG IV (09:28)
[2025-07-01] MEDS: DOCUSATE SOD 100 MG CAPSULE PO ×2 (09:29→20:22)
[2025-07-01] MEDS: POT CHL ADDITIVE 20 MEQ in DEXTROSE 5%-LACTATED RINGERS 1,000 ML 100 MEQ IV ×2 (09:34→22:40)
--- NOTE | 2025-07-01 11:55 | ESPR_ITS ---
<Statement entered by Graham Baker MD - 07/01/25 17:00> 45-year-old with no significant past medical history apparently has not seen a PCP in several years presenting to the ED on 06/30 with abdominal pain. Pain apparently started earlier that day and progressively worsened and was localized over the right lower quadrant. Patient denied having any nausea or vomiting during episodes. In the ED CT abdomen pelvis showed fluid-filled enlarged appendix with appendicolith prominent periappendiceal inflammatory changes. General surgery was consulted on 07/01 completed laparoscopic appendectomy with a postoperative diagnosis of acute gangrenous appendicitis with localized peritonitis. Patient was seen bedside with no concerning symptoms; however, appears tired. Will continue IV antibiotics and close monitoring for 48 hours and discharge when stable. I have personally seen and examined the patient. I agree with the resident's assessment and plan as documented below. Graham Baker DO PGY-2 Internal Medicine - GME Documentation for date of: 07/01/25 Subjective Subjective Interval history: No acute events overnight. Patient seen and examined at bedside this AM. S/p lap appendectomy for gangrenous appendicitis by surgeon Dr. Ram. Was tired and drowsy from surgery. Endorsed mild soreness, no other complaints. Has not yet passed gas but bowel sounds positive on exam. Will continue IV antibiotics and close monitoring for 48 hours and discharge home when stable. Labs and vitals were reviewed. WBC elevated 12.2 prior to surgery, anticipate decrease with IV antibiotics and status post surgery. Potassium 3.6, started on KCl additive 20 mEq. Magnesium 1.5, repleted with IV mag sulfate 4 g. Total bili 4.0, again prior to surgery. Will reevaluate labs tomorrow morning. Review of systems otherwise negative except what is mentioned above. Exam Vital Signs Temp Pulse Resp BP Pulse Ox O2 Del Method O2 Flow Rate 98.4 F 103 H 15 113/69 99 Room Air 2 07/01/25 08:41 07/01/25 08:41 07/01/25 08:41 07/01/25 08:41 07/01/25 08:41 07/01/25 04:00 07/01/25 08:41 Narrative Exam Physical Exam General: Awake and in no acute distress. Mildly somnolent but non-toxic appearing. Obese. HEENT: Normocephalic, atraumatic, mucous membranes moist. Heart: Regular rate and rhythm, normal S1 and S2, no murmurs. Lungs: Clear to auscultation with no wheezing or crackles. Abdomen: Soft, nondistended, nontender, positive bowel sounds. No guarding or rebound tenderness. Incision on left lower abdomen. Wound clean, dry, and intact. No swelling or erythema. Neurologic: Alert and oriented x3, no gross neurological deficit, and patient able to move all 4 extremities. Extremities: No edema. Skin: No rash or ecchymoses. Objective Labs 07/02/25 04:48 07/02/25 04:48 Labs: Laboratory Results - last 24 hr 06/30/25 06/30/25 06/30/25 16:24 16:29 19:34 WBC 15.2 H RBC 5.68 Hgb 17.3 H Hct 49.7 MCV 88 MCH 30.5 MCHC 34.8 RDW Std Deviation 41.0 Plt Count 221 Neut % (Auto) 86 H Lymph % (Auto) 8 L [place] % (Auto) 4 Eos % (Auto) 1 Baso % (Auto) 0 Neut # (Auto) 13.1 H Lymph # (Auto) 1.2 [place] # (Auto) 0.7 Eos # (Auto) 0.2 Baso # (Auto) 0.0 Immature Gran # (Auto) 0.05 H Absolute Nucleated RBC 0.00 Immature Gran % 0 Nucleated RBC % 0 PT INR APTT Sodium 140 Potassium 3.5 Chloride 103 Carbon Dioxide 24.3 Anion Gap 13 BUN 10 Creatinine 0.7 Estim Creat Clear Calc 139.7 eGFR > 60 BUN/Creatinine Ratio 14 Glucose 114 H Calculated Osmolality 279 Calcium 10.0 Corrected Calcium 10.0 Phosphorus Magnesium 1.9 Total Bilirubin 2.8 H Direct Bilirubin 0.8 H AST 19 ALT 20 Alkaline Phosphatase 99 Troponin I < 0.002 Total Protein 7.0 Albumin 4.6 Globulin 2.4 Albumin/Globulin Ratio 1.9 Amylase 92 Lipase 22 Ur Collection Type Clean Catch Urine Color Yellow Urine Clarity Clear Urine pH 5.5 Ur Specific [place] 1.026 Urine Protein Negative Urine Glucose (UA) Negative Urine Ketones 3+ A Urine Blood Negative Urine Nitrite Negative Urine Bilirubin Negative Urine Urobilinogen (Auto) Negative Ur Leukocyte Esterase Negative Urine RBC 0 Urine WBC 2 Ur Squamous Epith Cells < 1 Amorphous Crystals Present A Urine Bacteria 3+ A Urine Sperm Present A Ur Culture Indicated? Yes Urine Opiates Screen Positive A Urine Fentanyl Screen Negative Ur Barbiturates Screen Negative U Amphetamin/Meth Scrn Positive A U Benzodiazepines Scrn Negative U Cocaine Metab Screen Negative U Marijuana (THC) Screen Negative Ethyl Alcohol < 3.0 07/01/25 04:28 WBC 21.2 H D RBC 5.46 Hgb 16.8 H Hct 49.2 MCV 90 MCH 30.8 MCHC 34.1 RDW Std Deviation 42.5 Plt Count 216 Neut % (Auto) 88 H Lymph % (Auto) 6 L [place] % (Auto) 6 Eos % (Auto) 0 Baso % (Auto) 0 Neut # (Auto) 18.6 H Lymph # (Auto) 1.3 [place] # (Auto) 1.2 H Eos # (Auto) 0.0 Baso # (Auto) 0.0 Immature Gran # (Auto) 0.09 H Absolute Nucleated RBC 0.00 Immature Gran % 0 Nucleated RBC % 0 PT 11.9 INR 1.1 APTT 30.4 Sodium 138 Potassium 3.6 Chloride 98 Carbon Dioxide 25.3 Anion Gap 15 BUN 7 L Creatinine 0.9 Estim Creat Clear Calc 111.9 eGFR > 60 BUN/Creatinine Ratio 8 L Glucose 106 Calculated Osmolality 273 L Calcium 9.7 Corrected Calcium 9.7 Phosphorus 3.1 Magnesium 1.5 L Total Bilirubin 4.0 H D Direct Bilirubin AST 13 ALT 17 Alkaline Phosphatase 94 Troponin I Total Protein 7.0 Albumin 4.7 Globulin 2.3 Albumin/Globulin Ratio 2.0 Amylase Lipase Ur Collection Type Urine Color Urine Clarity Urine pH Ur Specific [place] Urine Protein Urine Glucose (UA) Urine Ketones Urine Blood Urine Nitrite Urine Bilirubin Urine Urobilinogen (Auto) Ur Leukocyte Esterase Urine RBC Urine WBC Ur Squamous Epith Cells Amorphous Crystals Urine Bacteria Urine Sperm Ur Culture Indicated? Urine Opiates Screen Urine Fentanyl Screen Ur Barbiturates Screen U Amphetamin/Meth Scrn U Benzodiazepines Scrn U Cocaine Metab Screen U Marijuana (THC) Screen Ethyl Alcohol Quality Measures Quality Measures none Assessment & Plan Assessment Current Active Medications: Generic Name Dose Route Start Last Admin Trade Name Freq PRN Reason Stop Dose Admin Acetaminophen 650 mg 06/30/25 22:19 Acetaminophen 325 Mg Tablet PO 07/30/25 22:18 Q6H PRN Fever >101.5 Hydrocodone Bitart/Acetaminophen 1 tab 07/01/25 09:15 Hydrocodone/Apap 5/325 Tablet PO 07/06/25 09:09 Q6HR PRN PAIN SCALE 4-6 Docusate Sodium 100 mg 07/01/25 09:10 07/01/25 09:29 Docusate Sod 100 Mg Capsule PO 07/31/25 09:09 100 mg BID DANYELLE Administration Protocol Cefoxitin Sodium 2 gm/ Sodium 50 mls @ 100 mls/hr 07/01/25 06:00 07/01/25 05:00 Chloride IV 07/08/25 05:59 100 mls/hr Q6HR DANYELLE Administration Magnesium Sulfate 4 gm in 50 mls @ 12.5 mls/hr 07/01/25 08:29 07/01/25 09:28 Magnesium Sulfate Ivpb IV 07/01/25 12:28 12.5 mls/hr X1 ONE Administration Potassium Chloride 20 meq/ 1,010 mls @ 100 mls/hr 07/01/25 09:10 07/01/25 09:34 Dextrose/Lactated Ringer's IV 07/31/25 09:09 100 mls/hr .Q10H6M DANYELLE Administration Morphine Sulfate 2 mg 06/30/25 22:25 Morphine Sulf Inj 10 Mg/Ml Vial IVP 07/05/25 22:24 Q3H PRN PAIN SCALE 7-10 (Severe Ondansetron HCl 4 mg 06/30/25 22:19 Ondansetron Inj 2 Mg/Ml Inj 2 Ml IVP 07/30/25 22:18 Q6H PRN NAUSEA OR VOMITING Protocol Plan Patient is a 45 year old male with PMH of meth abuse who presents on 06/30 for epigastric pain and nausea/vomiting, admitted for acute gangrenous appendicitis. #Acute gangrenous appendicitis #S/p lap appendectomy Presented with significant RLQ pain with rebound tenderness at McBurney's point. Endorsed nausea and vomiting. Admission WBC 15.2, T.bilirubin 2.8, direct bili 0.8. LFT, amylase, and lipase WNL. CT A/P shows fluid-filled enlarged appendix, with appendicolith and prominent periappendiceal inflammatory change. No localized perforation or pelvic abscees. Abd US shows mildly prominent common bile duct 0.7 cm and absent gallbladder. Consulted surgeon Dr. Ram, completed lap appendectomy this morning. Keep for at least 48 hours. Plan: - Cefoxitin 2gm IV - IV morphine 5mg Q3H for pain - Zofran for nausea - Antigo 5 q6hr - KCL additive 20 mEq IV - Surgery Dr. Ram consulted, appreciate recommendations - Clear liquid diet post surgery #Bilateral renal calculi Incidental finding of bilateral renal calculi on CT abdominal/pelvis. Patient has no active symptoms of urinary frequency and dysuria, hematuria, flank pain. -CTM -Encourage adequate hydration Health Maintenance Disposition: med surg s/p appendectomy for gangrenous appendicitis DVT prophylaxis: SCDs GI prophylaxis: protonix Diet: Clear liquid CODE STATUS: FULL Patient plan of care was discussed with the resident, Dr. Baker, and attending physician, Dr. Mariee. Pat Castillo, PGY-1 Attending Provider Attestation/Addendum I, Rita Mariee DO, attest that I was physically present for the simms portions of the service and evaluated the patient with the resident and I reviewed and discussed the case with the resident and agree with the resident's findings and plans of care as documented above Patient seen and evaluated this AM. Patient was admitted for appendicitis and is now s/p lap appendectomy. Patient was found to have acute gangrenous appendicitis. Will continue with IV abx at this time. pain control as needed. Patient denies pain and reports that he is tired. Incisions appear CDI. Diet to be advanced by surgeon.
--- NOTE | 2025-07-01 19:22 | PC.NURSE ---
Pt resting in bed c/o abd pain 4/10 declines for pain medication, bowel sounds active, per pt passing gas. Encouraged to call if pain not tolerable pt verbalized understanding.
[2025-07-02] VITALS (7 sets, daily range): BP systolic 106–128; BP diastolic 50–79; PULSE 70–96; RESP 16–96; TEMP 36–37; O2SAT 94–98
[2025-07-02] MEDS: HYDROcodone/APAP 5/325 TABLET 1 TAB PO ×2 (03:05→16:04)
[2025-07-02] MEDS: CEFOXITIN 2 GM in SODIUM CHLORIDE 0.9% (Popper) 50 ML IV ×4 (05:17→23:09)
[2025-07-02 05:37] LABS: Basophils # (Auto) 0.0 Thou/mm3 (0.0-0.2); Basophils % (Auto) 0 % (0-2.5); Eosinophils # (Auto) 0.0 Thou/mm3 (0.0-0.5); Eosinophils % (Auto) 0 % (0-10); Hematocrit 46.1 % (41.0-53.0); Hemoglobin 15.7 g/dL (13.5-16.0); Immature Granulocytes Auto 0.06 Thou/mm3 (0.00-0.00); Lymphocytes # (Auto) 1.4 Thou/mm3 (1.0-4.8); Lymphocytes % (Auto) 8 % (10-50); Mean Corpuscular HGB Conc 34.1 g/dl (31.0-37.0); Mean Corpuscular Hemoglobin 30.7 pg (25.0-35.0); Mean Corpuscular Volume 90 fL (80-100); Monocytes # (Auto) 1.0 Thou/mm3 (0.0-0.8); Monocytes % (Auto) 6 % (0-12); Neutrophils # (Auto) 15.6 Thou/mm3 (1.8-7.7); Neutrophils % (Auto) 86 % (37-80); Nucleated Red Blood Cell # 0.00 Thou/mm3 (0.00-0.00); Nucleated Red Blood Cell % 0 /100 WBC (0); Platelet Count 208 Thou/mm3 (140-440); RDW Standard Deviation 43.5 fL (35.1-43.9); Red Blood Count 5.12 Miln/mm3 (4.50-5.90); White Blood Count 18.2 Thou/mm3 (3.8-10.6)
--- NOTE | 2025-07-02 06:01 | PC.NURSE ---
A [facility] down time occured 07/02/25 [id number]
[2025-07-02 06:10] LABS: Alanine Aminotransferase 11 U/L (10-49); Albumin, Serum 4.1 gm/dL (3.5-5.0); Albumin/Globulin Ratio 1.8 (1.2-2.2); Alkaline Phosphatase 78 U/L (46-116); Anion Gap 11 (7-16); Aspartate Amino Transferase < 10 U/L (0-34); BUN/Creatinine Ratio 7 Ratio (12-20); Bilirubin,Total 1.8 mg/dL (0.3-1.2); Blood Urea Nitrogen < 5 mg/dL (9-23); Calcium 9.5 mg/dL (8.3-10.6); Calcium (Corrected) 9.5 mg/dL (8.5-10.1); Carbon Dioxide 27.2 mMol/L (20.0-31.0); Chloride 105 mMol/L (98-107); Creatinine (Component) 0.7 mg/dL (0.6-1.3); Estimated Creatinine Clearance 143.8 mL/min (>60); Globulin 2.3 gm/dL (2.3-3.5); Glucose 113 mg/dL (74-106); Magnesium 2.0 mg/dL (1.6-2.6); Osmolality,Calculated 283 (275-295); Phosphorous 2.1 mg/dL (2.4-5.1); Potassium 3.9 mMol/L (3.4-5.1); Sodium 143 mMol/L (136-145); Total Protein 6.4 gm/dL (5.7-8.2); eGFR > 60 See Note
[2025-07-02] MEDS: DOCUSATE SOD 100 MG CAPSULE PO ×2 (08:22→20:08)
[2025-07-02] MEDS: NAPH,KPH MBDB 1 PACKET (1.5 GM) PO (08:36)
[2025-07-02] MEDS: MORPHINE SULF INJ 4 MG/ML VIAL 2 MG IVP (09:52)
--- NOTE | 2025-07-02 12:11 | PC.SS ---
Late note 07-01-25: SS met with patient regarding his d/c plan. Pt is alert/oriented. Pt was admitted for Abdominal Pain. Pt confirmed demographic and contact information is correct on facesheet. Pt resides with ficelia and roommate. Pt ambulates independently without assistance or DME. Pt is ok with all ADLs. Pt is currently on 2 liters of O2. Pt does not utilizes O2 at home. Patient?s pharmacy of choice is [facility] on [email or web address] in [place]. Pt named his Claritza ware, phone# [phone] medical decision maker if he is unable. Patient?s choice is to return home upon d/c. Pt states not diabetic and is not on dialysis. D/C plan: Return home Next of Kin: chaz Hansen, phone# [phone] PCP: [facility] Address: Correct on facesheet
--- NOTE | 2025-07-02 13:18 | PD.SURPROG ---
Documentation for date of: 07/02/25 Subjective Subjective Narrative: Pt is seen and examined. Pain is improving. He is tolerating clear liquids. Exam Vital Signs Temp Pulse Resp BP Pulse Ox O2 Del Method O2 Flow Rate 97.0 F 76 16 124/67 95 Room Air 1.5 07/02/25 07:40 07/02/25 07:40 07/02/25 07:40 07/02/25 07:40 07/02/25 07:40 07/02/25 07:40 07/01/25 18:14 Constitutional Constitutional: no acute distress Routine Abdominal Exam Abdominal: Present soft, normoactive bowel sounds, tenderness (mild lower abdominal tenderness to palpation) and distended (minimally distended. Incisions clean, dry and intact) Assessment & Plan Assessment Additional comments: POD#1 s/p laparoscopic appendectomy Plan Continue IV antibiotics. Advance diet. May discharge home tomorrow if WBC normalizes. PROCEDURES: Procedures Laparoscopic appendectomy
--- NOTE | 2025-07-02 13:49 | ESPR_ITS ---
<Statement entered by Graham Baker MD - 07/02/25 15:15> Patient seen and assessed in hospital bed reporting improvement of abdominal pain status post appendectomy for gangrenous appendix. Patient is status postop day 1 from appendectomy and is progressing well. Apparently patient has been able to ambulate from hospital bed to chair and is passing flatus. At this time, patient appears slightly somnolent but is able to answer questions appropriately and states that he feels better than yesterday. Will continue IV antibiotics and monitor the patient for any alarming signs or symptoms. I have personally seen and examined the patient. I agree with the resident's assessment and plan as documented below. Graham Baker DO PGY-2 Internal Medicine - [facility] Documentation for date of: 07/02/25 Subjective Subjective Interval history: No acute events overnight. No new complaints this morning. WBC downtrending. Will continue IV antibiotics. Encouraged ambulation today. Consulted surgeon Dr. Ram who advanced diet and agreed with discharge tomorrow if WBC continues to improve. Exam Vital Signs Temp Pulse Resp BP Pulse Ox O2 Del Method O2 Flow Rate 97.0 F 76 16 124/67 95 Room Air 1.5 07/02/25 07:40 07/02/25 07:40 07/02/25 07:40 07/02/25 07:40 07/02/25 07:40 07/02/25 07:40 07/01/25 18:14 Narrative Exam Physical Exam General: Awake and in no acute distress. Mildly somnolent but non-toxic appearing. Obese. HEENT: Normocephalic, atraumatic, mucous membranes moist. Heart: Regular rate and rhythm, normal S1 and S2, no murmurs. Lungs: Clear to auscultation with no wheezing or crackles. Abdomen: Soft, nondistended, nontender, positive bowel sounds. No guarding or rebound tenderness. Incision on left lower abdomen. Wound clean, dry, and intact. No swelling or erythema. Neurologic: Alert and oriented x3, no gross neurological deficit, and patient able to move all 4 extremities. Extremities: No edema. Skin: No rash or ecchymoses. Objective Labs 07/03/25 05:34 07/03/25 07:31 Labs: Laboratory Results - last 24 hr 07/02/25 04:48 WBC 18.2 H RBC 5.12 Hgb 15.7 Hct 46.1 MCV 90 MCH 30.7 MCHC 34.1 RDW Std Deviation 43.5 Plt Count 208 Neut % (Auto) 86 H Lymph % (Auto) 8 L Spink % (Auto) 6 Eos % (Auto) 0 Baso % (Auto) 0 Neut # (Auto) 15.6 H Lymph # (Auto) 1.4 Spink # (Auto) 1.0 H Eos # (Auto) 0.0 Baso # (Auto) 0.0 Immature Gran # (Auto) 0.06 H Absolute Nucleated RBC 0.00 Immature Gran % 0 Nucleated RBC % 0 Sodium 143 Potassium 3.9 Chloride 105 Carbon Dioxide 27.2 Anion Gap 11 BUN < 5 L Creatinine 0.7 Estim Creat Clear Calc 143.8 eGFR > 60 BUN/Creatinine Ratio 7 L Glucose 113 H Calculated Osmolality 283 Calcium 9.5 Corrected Calcium 9.5 Phosphorus 2.1 L Magnesium 2.0 Total Bilirubin 1.8 H D AST < 10 ALT 11 Alkaline Phosphatase 78 Total Protein 6.4 Albumin 4.1 D Globulin 2.3 Albumin/Globulin Ratio 1.8 Quality Measures Quality Measures none Assessment & Plan Assessment Current Active Medications: Generic Name Dose Route Start Last Admin Trade Name Freq PRN Reason Stop Dose Admin Acetaminophen 650 mg 06/30/25 22:19 Acetaminophen 325 Mg Tablet PO 07/30/25 22:18 Q6H PRN Fever >101.5 Hydrocodone Bitart/Acetaminophen 1 tab 07/01/25 09:15 07/02/25 03:05 Hydrocodone/Apap 5/325 Tablet PO 07/06/25 09:09 1 tab Q6HR PRN Administration PAIN SCALE 4-6 Docusate Sodium 100 mg 07/01/25 09:10 07/02/25 08:22 Docusate Sod 100 Mg Capsule PO 07/31/25 09:09 100 mg BID DANYELLE Administration Protocol Cefoxitin Sodium 2 gm/ Sodium 50 mls @ 100 mls/hr 07/01/25 06:00 07/02/25 11:25 Chloride IV 07/08/25 05:59 100 mls/hr Q6HR DANYELLE Administration Morphine Sulfate 2 mg 07/01/25 13:47 07/02/25 09:52 Morphine Sulf Inj 4 Mg/Ml Vial IVP 07/05/25 22:24 2 mg Q3H PRN Administration PAIN SCALE 7-10 (Severe Ondansetron HCl 4 mg 06/30/25 22:19 Ondansetron Inj 2 Mg/Ml Inj 2 Ml IVP 07/30/25 22:18 Q6H PRN NAUSEA OR VOMITING Protocol Plan Patient is a 45 year old male with PMH of meth abuse who presents on 06/30 for epigastric pain and nausea/vomiting, admitted for acute gangrenous appendicitis. #Acute gangrenous appendicitis #S/p lap appendectomy Presented with significant RLQ pain with rebound tenderness at McBurney's point. Endorsed nausea and vomiting. Admission WBC 15.2, T.bilirubin 2.8, direct bili 0.8. LFT, amylase, and lipase WNL. CT A/P shows fluid-filled enlarged appendix, with appendicolith and prominent periappendiceal inflammatory change. No localized perforation or pelvic abscees. Abd US shows mildly prominent common bile duct 0.7 cm and absent gallbladder. Consulted surgeon Dr. Ram, completed lap appendectomy this morning. Keep for at least 48 hours. Plan: - Cefoxitin 2gm IV - IV morphine 5mg Q3H for pain - Zofran for nausea - [place] 5 q6hr - Surgery Dr. Ram consulted, appreciate recommendations: doing well, anticipate discharge tomorrow if WBC continues to improve - Advance diet as tolerated #Bilateral renal calculi Incidental finding of bilateral renal calculi on CT abdominal/pelvis. Patient has no active symptoms of urinary frequency and dysuria, hematuria, flank pain. -CTM -Encourage adequate hydration Health Maintenance Disposition: med surg s/p appendectomy for gangrenous appendicitis DVT prophylaxis: SCDs GI prophylaxis: protonix Diet: Regular CODE STATUS: FULL Patient plan of care was discussed with the resident, Dr. Baker, and attending physician, Dr. Mariee. Pat Castillo, PGY-1 Attending Provider Attestation/Addendum Rita Seaman, DO, attest that I was physically present for the simms portions of the service and evaluated the patient with the resident and I reviewed and discussed the case with the resident and agree with the resident's findings and plans of care as documented above Patient seen and eval this a.m. No acute events overnight. He states that he is feeling well. He has minimal pain at this time. Incisions are clean dry and intact. Patient is tolerating diet and passing gas. Continue with IV antibiotics at this time. Anticipate discharge in the next 24 hours. Encourage patient to ambulate.
[2025-07-03] VITALS: BP 92/59; PULSE 77; RESP 17; TEMP 36.6; O2SAT 96
[2025-07-03] MEDS: HYDROcodone/APAP 5/325 TABLET 1 TAB PO ×2 (03:21→11:00)
[2025-07-03 03:56] VITALS: PULSE 85; RESP 20; RESP 98
[2025-07-03 04:00] VITALS: BP 112/60; PULSE 65; RESP 18; TEMP 36.3; O2SAT 97
[2025-07-03] MEDS: CEFOXITIN 2 GM in SODIUM CHLORIDE 0.9% (Popper) 50 ML IV (05:14)
[2025-07-03 06:36] LABS: Basophils # (Auto) 0.0 Thou/mm3 (0.0-0.2); Basophils % (Auto) 0 % (0-2.5); Eosinophils # (Auto) 0.2 Thou/mm3 (0.0-0.5); Eosinophils % (Auto) 3 % (0-10); Hematocrit 43.8 % (41.0-53.0); Hemoglobin 14.7 g/dL (13.5-16.0); Immature Granulocytes Auto 0.01 Thou/mm3 (0.00-0.00); Lymphocytes # (Auto) 1.9 Thou/mm3 (1.0-4.8); Lymphocytes % (Auto) 24 % (10-50); Mean Corpuscular HGB Conc 33.6 g/dl (31.0-37.0); Mean Corpuscular Hemoglobin 30.3 pg (25.0-35.0); Mean Corpuscular Volume 90 fL (80-100); Monocytes # (Auto) 0.5 Thou/mm3 (0.0-0.8); Monocytes % (Auto) 7 % (0-12); Neutrophils # (Auto) 5.4 Thou/mm3 (1.8-7.7); Neutrophils % (Auto) 67 % (37-80); Nucleated Red Blood Cell # 0.00 Thou/mm3 (0.00-0.00); Nucleated Red Blood Cell % 0 /100 WBC (0); Platelet Count 180 Thou/mm3 (140-440); RDW Standard Deviation 43.8 fL (35.1-43.9); Red Blood Count 4.85 Miln/mm3 (4.50-5.90); White Blood Count 8.1 Thou/mm3 (3.8-10.6)
[2025-07-03 07:05] VITALS: PULSE 65; RESP 18; RESP 99
[2025-07-03 08:00] VITALS: BP 110/66; PULSE 71; RESP 18; TEMP 36.3; O2SAT 93
[2025-07-03] MEDS: DOCUSATE SOD 100 MG CAPSULE PO (08:18)
[2025-07-03 09:05] LABS: Alanine Aminotransferase 14 U/L (10-49); Albumin, Serum 4.0 gm/dL (3.5-5.0); Albumin/Globulin Ratio 1.7 (1.2-2.2); Alkaline Phosphatase 71 U/L (46-116); Anion Gap 10 (7-16); Aspartate Amino Transferase 13 U/L (0-34); BUN/Creatinine Ratio 9 Ratio (12-20); Bilirubin,Total 1.1 mg/dL (0.3-1.2); Blood Urea Nitrogen 7 mg/dL (9-23); Calcium 9.2 mg/dL (8.3-10.6); Calcium (Corrected) 9.2 mg/dL (8.5-10.1); Carbon Dioxide 29.2 mMol/L (20.0-31.0); Chloride 104 mMol/L (98-107); Creatinine (Component) 0.8 mg/dL (0.6-1.3); Estimated Creatinine Clearance 125.9 mL/min (>60); Globulin 2.3 gm/dL (2.3-3.5); Glucose 86 mg/dL (74-106); Magnesium 1.9 mg/dL (1.6-2.6); Osmolality,Calculated 281 (275-295); Phosphorous 4.2 mg/dL (2.4-5.1); Potassium 3.6 mMol/L (3.4-5.1); Sodium 143 mMol/L (136-145); Total Protein 6.3 gm/dL (5.7-8.2); eGFR > 60 See Note
--- NOTE | 2025-07-03 11:06 | ESDS_ITS ---
<Statement entered by Graham Baker MD - 07/03/25 13:58> 45-year-old male with past medical history of polysubstance use disorder, methamphetamine use presenting with abdominal pain found to have gangrenous appendicitis, status post op day 2 from laparoscopic cholecystectomy. Patient tolerated the procedure well and is ambulating. Recommendation is that the patient follow-up with the PCP once he is discharged for health maintenance. Patient understands that if his symptoms of abdominal pain worsen or if he starts develop any bleeding, chest pain or shortness of breath he will return to the emergency room directly. Also counseled the patient on complete cessation from methamphetamine use. At this time, patient is clinically stable and safe to be discharged. I have personally seen and examined the patient. I agree with the resident's discharge summary as documented below. Graham Baker DO PGY-2 Internal Medicine - [facility] Planned Discharge Date 07/03/25 DS: Providers Provider Date of admission: 06/30/25 22:13 Primary care physician: Physician No Primary/Family Admitting Provider: Violette Squires MD Attending Provider on Admission: Jaxon Elder MD Consults: 06/30/25 20:36 Consult to General Surgery Stat Comment: Appendicitis Consulting Provider: Maya Ram Attending Provider on DC: Jaxon Elder MD Discharging Provider: RESIDENT Thom DS: Diagnosis Problem List Completed Was Problem List Reviewed/Reconciled?: Yes Hospital Course Hospital Course Hospital course: Summary: Patient is a 45 year old male with PMH of meth abuse who presents on 06/30 for epigastric pain and nausea/vomiting, admitted for acute gangrenous appendicitis s/p laprascopic appendectomy on 07/01. ED Course: -Initial vitals were BP 116/66, pulse 84, RR 16, temp 97.9, O2 sat 97% on room air. -Labs significant for WBC 15.2, hemoglobin 17.8, T. bili 2.8, T. bili 0.8. Urine tox positive for opiates and methamphetamine -Imaging included abdominal ultrasound that showed absent gallbladder, abd/pelvis CT bilateral renal calculi, making appendicitis with no localized perforation of pelvic abscess. -In the ED, patient was given 1 L of NS, Zofran, 5mg morphine, 1mg hydromorphone, Protonix, famotidine, Zosyn -Patient was admitted for acute appendicitis evaluation and management Reason for hospitalization: Patient is a 45 year old male with PMH of meth abuse who presents on 06/30 for epigastric pain and nausea/vomiting, admitted for acute gangrenous appendicitis s/p laprascopic appendectomy on 07/01, performed by surgeon Dr. Ram. Completed 3 day course of IV cefoxitin with normalization of white count. Incidentally fou nd bilateral renal calculi, patient is asymptomatic. Discharged with pain medications, post operative antibiotics not needed. Counseled patient on drug cessation and adequate hydration. Discharge Recommendations: Please follow-up with PCP within 1 week - ask your PCP if you need to follow-up with General Surgery If your symptoms worsen or if you develop new chest pain, shortness of breath, severe abdominal pain or bleeding - please come back to the ED immediately. Hospital Diagnoses: #Acute gangrenous appendicitis #S/p lap appendectomy 07/01 #Bilateral renal calculi #Meth abuse Disposition: Safely discharged home Patient plan of care was discussed with the resident, Dr. Baker, and att ending physician, Dr. Elder. Pat Castillo, PGY-1 Time Spent with Patient Time attestation: Total time spent providing and/or coordinating discharge services: at least 30 minutes of care coordination Time spent: Greater than 30 minutes Exam Vital Signs Temp Pulse Resp BP Pulse Ox O2 Del Method O2 Flow Rate 97.4 F 71 18 110/66 93 L Room Air 1.5 07/03/25 08:00 07/03/25 08:00 07/03/25 08:00 07/03/25 08:00 07/03/25 08:00 07/03/25 08:00 07/01/25 18:14 Narrative Exam Physical Exam General: Awake and in no acute distress. Mildly somnolent but non-toxic appearing. Obese. HEENT: Normocephalic, atraumatic, mucous membranes moist. Heart: Regular rate and rhythm, normal S1 and S2, no murmurs. Lungs: Clear to auscultation with no wheezing or crackles. Abdomen: Soft, nondistended, nontender, positive bowel sounds. No guarding or rebound tenderness. Incision on left lower abdomen. Wound clean, dry, and intact. No swelling or erythema. Neurologic: Alert and oriented x3, no gross neurological deficit, and patient able to move all 4 extremities. Extremities: No edema. Skin: No rash or ecchymoses. Discharge Plan Plan Patient Disposition: HOME (Self Care) Disposition Comment: Please get taxi voucher for patient Care Plan Goals: Please follow-up with PCP within 1 week - ask your PCP if you need to follow-up with General Surgery If your symptoms worsen or if you develop new chest pain, shortness of breath, severe abdominal pain or bleeding - please come back to the ED immediately. Prescriptions/Referrals Prescriptions/Med Rec: No Action No Known Home Medications Referrals: Maya Ram MD [Physician, General Surgery] No Primary/Family,Physician [Primary Care Provider] Patient/Caregiver Discharge Instructions Education Materials: Preventing Surgical Site Infections Print Language: Tam[place]ight Stand Alone Forms: Nerissa Award Info., Patient Portal Info Letter Discharge Order Discharge Orders: Discharge (Routine); Ordered 07/03/25 Ordered By: Graham Baker Quality Discharge Quality Measures VTE prophylaxis Attestestation Attestation Face to face evaluation was performed by me. I have personally seen and examined the patient. I discussed the assessment and plan with the entire medicine team. I reviewed available medical records, imaging studies, laboratory results. I agree with the above subjective data, objective findings, assessment and plan except as corrected by me or noted below Acute gangrenous appendicitis Abdominal pain due to above Polysubstance abuse history left side methamphetamine Patient stable having some abdominal pain plan to discharge home follow-up with PCP stay away from polysubstance use More than > 30 minutes spent on the encounter
== END 2025-07-03 12:35 | disposition home or self-care (01) | DRG 233 ==
LOC: SERX 20:37 → SERHOLD 07-01 05:44 → S3SX 07-01 05:44
PROVIDERS: Emergency Medicine; Surgery; Admitting Provider Student in an Organized Health Care Education/Training Program; Emergency Provider Emergency Medicine; Visit Provider Internal Medicine
PROC: 0DTJ4ZZ Resection of Appendix, Percutaneous Endoscopic Approach (ICD-10-PCS; CPT 44970; principal; 2025-07-01 07:00)
DX: K35.31 Acute appendicitis with localized peritonitis and gangrene, without perforation (principal); K38.1 Appendicular concretions; N20.0 Calculus of kidney; F15.10 Other stimulant abuse, uncomplicated
CPT/HCPCS: 36415; 74176; 76705; 80053; 80307; 80320; 81001; 82150; 82248; 83690; 83735; 84100; 84484; 85025; 85610; 85730; 87040; 87086; 93005; 96361; 96365; 96375; 99284; A4217; A4649; J0131; J0694; J1100; J1171; J1580; J2270; J2371; J2405; J2470; J2543; J2704; J3010; J3475; J3480; J3490; J7030; J7050; J7121; A9270; G0480; J1805

== ENCOUNTER 2025-08-12 11:28 | Emergency (ER) | payer MEDICAID, SELFPAY ==
[2025-08-12 11:32] VITALS: BP 147/99; PULSE 75; RESP 16; TEMP 36.7; O2SAT 97; BMI 32.8
[2025-08-12 11:43] VITALS: PULSE 73; RESP 18; O2SAT 99
[2025-08-12 11:45] VITALS: BP 134/84; PULSE 76; RESP 18; TEMP 36.4; O2SAT 100; BMI 32.1
--- NOTE | 2025-08-12 11:51 | XR_ITS ---
Examination: CT abdomen and pelvis without contrast. Coronal 3-D reconstructions. Sagittal 2-D reconstructions. Date and time of exam: August 12, 2025, 1220 hours, June 30 2025 INDICATIONS: Onset abdominal pain CTDI: vol (mGy): 7.93 DLP: (mGycm): 509 Technique: Axial images of the abdomen have been obtained, 3 mm slice thickness Intravenous contrast material has not been administered. Low dose protocols were performed. One or more of the following dose reduction techniques were used; automated exposure control, adjustment of the mA and/or KV according to patient size, use of iterative reconstruction technique. Findings: No focal liver or splenic lesions Absent gallbladder No extrahepatic biliary tract dilatation No pancreatic or adrenal mass 5 mm lower pole right renal calculus Mild left hydronephrosis secondary to a 4 mm distal left ureteral calculus Aorta normal size Absent appendix No bowel obstruction No bladder mass or bladder calculi The osseous structures are intact IMPRESSION: Mild left hydronephrosis secondary to 4 mm distal left ureteral calculus
--- NOTE | 2025-08-12 11:54 | PD.EDRME ---
Rapid Medical Screening Exam E Arrival date/time: 08/12/25 11:28 45-year-old male presents to the emergency department if complains of left flank pain and left side abdominal pain Chief Complaint: Abdominal Pain Vital signs: Vital Signs Temperature 98.1 F 08/12/25 11:32 Pulse Rate 75 08/12/25 11:32 Respiratory Rate 16 08/12/25 11:32 Blood Pressure 147/99 H 08/12/25 11:32 Pulse Oximetry (%) 97 08/12/25 11:32 Oxygen Delivery Method Room Air 08/12/25 11:32
[2025-08-12] MEDS: KETOROLAC INJ 30 MG/ML VIAL IM (12:10)
[2025-08-12] MEDS: ONDANSETRON ODT 4 MG TABRAP PO (12:10)
[2025-08-12] MEDS: HYDROcodone/APAP 5/325 TABLET 1 TAB PO (12:10)
[2025-08-12 12:21] LABS: Basophils # (Auto) 0.0 Thou/mm3 (0.0-0.2); Basophils % (Auto) 0 % (0-2.5); Eosinophils # (Auto) 0.2 Thou/mm3 (0.0-0.5); Eosinophils % (Auto) 2 % (0-10); Hematocrit 47.0 % (41.0-53.0); Hemoglobin 16.1 g/dL (13.5-16.0); Immature Granulocytes Auto 0.03 Thou/mm3 (0.00-0.00); Lymphocytes # (Auto) 1.0 Thou/mm3 (1.0-4.8); Lymphocytes % (Auto) 10 % (10-50); Mean Corpuscular HGB Conc 34.3 g/dl (31.0-37.0); Mean Corpuscular Hemoglobin 30.2 pg (25.0-35.0); Mean Corpuscular Volume 88 fL (80-100); Monocytes # (Auto) 0.3 Thou/mm3 (0.0-0.8); Monocytes % (Auto) 3 % (0-12); Neutrophils # (Auto) 8.2 Thou/mm3 (1.8-7.7); Neutrophils % (Auto) 84 % (37-80); Nucleated Red Blood Cell # 0.00 Thou/mm3 (0.00-0.00); Nucleated Red Blood Cell % 0 /100 WBC (0); Platelet Count 230 Thou/mm3 (140-440); RDW Standard Deviation 42.3 fL (35.1-43.9); Red Blood Count 5.33 Miln/mm3 (4.50-5.90); White Blood Count 9.7 Thou/mm3 (3.8-10.6)
[2025-08-12 12:51] LABS: Alanine Aminotransferase 15 U/L (10-49); Albumin, Serum 4.7 gm/dL (3.5-5.0); Albumin/Globulin Ratio 2.0 (1.2-2.2); Alkaline Phosphatase 113 U/L (46-116); Anion Gap 11 (7-16); Aspartate Amino Transferase 11 U/L (0-34); BUN/Creatinine Ratio 6 Ratio (12-20); Bilirubin,Total 1.5 mg/dL (0.3-1.2); Blood Urea Nitrogen < 5 mg/dL (9-23); Calcium 9.5 mg/dL (8.3-10.6); Calcium (Corrected) 9.5 mg/dL (8.5-10.1); Carbon Dioxide 27.9 mMol/L (20.0-31.0); Chloride 103 mMol/L (98-107); Creatinine (Component) 0.9 mg/dL (0.6-1.3); Estimated Creatinine Clearance 112.7 mL/min (>60); Globulin 2.3 gm/dL (2.3-3.5); Glucose 149 mg/dL (74-106); Lipase 25 U/L (12-53); Osmolality,Calculated 283 (275-295); Potassium 3.4 mMol/L (3.4-5.1); Sodium 142 mMol/L (136-145); Total Protein 7.0 gm/dL (5.7-8.2); Troponin I < 0.002 ng/mL (0.0-0.045); eGFR > 60 See Note
[2025-08-12 16:11] VITALS: BP 130/89; PULSE 90; RESP 18; O2SAT 97
[2025-08-12 16:31] LABS: Collection Type, Urine Clean Catch; Squamous Epithelial Cell,Urine 0 /hpf (0-5)
[2025-08-12 16:41] LABS: Bilirubin,Urine Negative (Negative); Blood,Urine 3+ (Negative); Culture Indicated,Urine Not Indicated; Glucose, Urine Negative (Negative); Ketones,Urine Negative (Negative); Leukocyte Esterase,Urine Positive (Negative); Nitrite,Urine Negative (Negative); PH,Urine 6.5 (5.0-7.0); Protein,Urine 1+ (Neg - Trace); RBC,Urine 4074 /hpf (0-3); Specific Gravity,Urine 1.021 (1.001-1.035); Urobilinogen,Urine Negative mg/dL (0.0-1.0); WBC,Urine 1 /hpf (0-5)
--- NOTE | 2025-08-12 16:44 | PD.EDABDPN ---
ED Abdominal Pain RME/HPI General Chief Complaint: Abdominal Pain Stated complaint: ABD PAIN Arrival date/time: 08/12/25 11:28 RME / HPI RME / HPI narrative: 08/12/25 11:28 45-year-old male with past medical history of kidney stones who saw his urologist Dr. Ramirez about a month ago and had lithotripsy presents to the emergency department if complains of left flank pain with nausea which began last night similar nature to prior kidney stones. Denies fever, vomiting, diarrhea. Related Data Previous Rx's ?Medication ?Instructions ?Recorded ketorolac 10 mg tablet 10 mg PO Q8H #14 tabs 08/12/25 oxycodone-acetaminophen 5 mg-325 1 tab PO Q8H PRN pain #3 tabs 08/12/25 mg tablet (Percocet) tamsulosin 0.4 mg capsule 0.4 mg PO QDAY #14 caps 08/12/25 Allergies Allergy/AdvReac Type Severity Reaction Status Date / Time shrimp Allergy Severe throat Verified 08/12/25 11:47 [facility] ED Exam Narrative Physical exam: Constitutional: Patient alert and oriented. Well appearing. No acute distress. Not toxic appearing. Head: Normocephalic, atraumatic. Eyes: Periorbital regions bilaterally normal to inspection. Conjunctiva clear bilaterally. Sclera anicteric bilaterally. Pupils equal, round, reactive to light bilaterally. Extraocular movements intact bilaterally. Mouth/Throat: Mucous membranes moist. No stridor or muffled voice. No trismus. Handling secretions without difficulty. Airway widely patent. Neck: Supple. Trachea midline. No JVD. No nuchal rigidity. Normal range of motion. Respiratory: Normal effort. No accessory muscle use or respiratory distress. Lungs clear to auscultation bilaterally without rhonchi, wheezes, or crackles. Cardiovascular: RRR. Normal S1/S2. No murmurs or rubs. Radial pulses intact bilaterally. Abdomen: Soft. Non-distended. Non-tender throughout. No pulsatile mass. No guarding or rebound. Negative Cullen?s sign. Negative McBurney?s point tenderness. Negative Rovsing?s. Back: No midline tenderness or step-offs. Positive left-sided CVA tenderness to palpation. Upper Extremities: No gross deformities. Lower Extremities: No gross deformities. No edema or calf tenderness. Neuro: Speech normal. No gross motor or sensory deficits to upper or lower extremities bilaterally. GCS 15. CN II?XII grossly intact. Skin: Warm, dry, normal color. Psych: Normal affect. Cooperative. Normal insight. Course Quality Measures none Orders Category Date Time Status CT abdomen pelvis wo con Stat Exams 08/12/25 11:51 Completed CBC Stat Lab 08/12/25 12:16 Completed Comprehensive Metabolic Panel Stat Lab 08/12/25 12:16 Completed Drug Screen,Urine Stat Lab 08/12/25 16:05 Completed Lipase Stat Lab 08/12/25 12:16 Completed Troponin I Stat Lab 08/12/25 12:16 Completed UA, C/S IF [Urinalysis, C/S if Indicated] Stat Lab 08/12/25 16:11 Completed HYDROcodone*/APAP 5/325 [[place] 5/325] Med 08/12/25 11:53 Discontinued 1 tab PO X1 ONE Ketorolac Inj [Toradol Inj] Med 08/12/25 16:43 Discontinued 15 mg IVP X1 ONE Ketorolac Inj [Toradol Inj] Med 08/12/25 11:51 Discontinued 30 mg IM X1 ONE Ondansetron Odt [Zofran Odt] Med 08/12/25 11:53 Discontinued 4 mg PO X1 ONE Sodium Chloride 0.9% 1000 ml [Ns] 1,000 ml Med 08/12/25 16:42 Active IV 999 mls/hr Vital Signs Vital signs: Vital Signs Temperature 98.1 F 08/12/25 11:32 Pulse Rate 75 08/12/25 11:32 Respiratory Rate 16 08/12/25 11:32 Blood Pressure 147/99 H 08/12/25 11:32 Pulse Oximetry (%) 97 08/12/25 11:32 Oxygen Delivery Method Room Air 08/12/25 11:32 Abdominal Pain MDM MDM Narrative MDM Narrative:: MDM: Suspected Renal Colic 2/2 Nephrolithiasis Presentation most consistent with ureteral colic secondary to nephrolithiasis. Differential includes recently passed stone, cystitis, and musculoskeletal pain (strain/sprain). Stone identified 4mm in distal left ureter with mild hydro, not located at the UPJ. Hydronephrosis noted on the affected side without perinephric stranding or urine extravasation. No urethral strictures identified. No evidence of solitary or transplanted kidney. No . Serious Causes Considered and Deemed Unlikely: Obstructive uropathy: Hydronephrosis present but patient remains hemodynamically stable, afebrile, and nontoxic. No perinephric changes or systemic findings to suggest high-grade obstruction. Renal failure, solitary, or transplanted kidney: Cr 0.9 WNL. No history of solitary or transplanted kidney. AAA or other surgical emergency: No abdominal mass, atypical pain pattern, or hemodynamic instability to suggest aneurysm or alternative vascular cause. Musculoskeletal pain: Considered but less likely given pain character, radiation, and urinalysis/imaging findings. Summary: Findings support nephrolithiasis with hydronephrosis without evidence of sepsis, high-grade obstruction, renal failure, or alternative emergent etiology. Stone size suggests likely spontaneous passage with conservative management. Plan: Pain control and antiemetics as needed. Encourage hydration to promote stone passage. Outpatient urology and PMD follow-up in 1-2 days for reassessment and repeat imaging if symptoms persist or worsen. Return precautions: fever, chills, worsening flank or abdominal pain, vomiting, inability to tolerate fluids, urinary retention, or anuria. Patient understands and agrees with plan and disposition. Patient data External records reviewed:: [facility] previous records Clinical information provided by:: patient Social determinants that could affect healthcare access:: none Patient has the following chronic illnesses:: As noted How is presenting disease/condition affected by chronic disease/condition?: uneffected by Evaluation data The following diagnostics were reviewed and interpreted by me:: lab results and radiology exam(s) Lab and/or radiology exams considered but not ordered:: Ordered- Lab work notable for minimally elevated hemoglobin at 16.1, neutrophil percentage mildly elevated at 84% with normal white blood cell count of 9.7. CMP notable for mildly elevated glucose at 149 and mildly elevated total bilirubin at 1.5 otherwise no severe metabolic or electrolyte abnormality Interpretation Summary: As noted Medications / Prescriptions Medications or Prescriptions considered but not ordered:: I considered prescription management (both outpatient prescriptions AND drug treatment in the ER) and decided that this was necessary and was prescribed as chartedZak Walker Medication administrations:: Medication Administration History Sodium Chloride (Ns) 1,000 mls @ 999 mls/hr IV .Q1H1M ONE Stop: 08/12/25 17:42 Discontinued Medications Hydrocodone Bitart/Acetaminophen (Hydrocodone/Apap 5/325 Tablet) 1 tab PO X1 ONE Stop: 08/12/25 11:54 Last Admin: 08/12/25 12:10 Dose: 1 tab Documented By: EF Ketorolac Tromethamine (Ketorolac Inj 30 Mg/Ml Vial) 30 mg IM X1 ONE Stop: 08/12/25 11:52 Last Admin: 08/12/25 12:10 Dose: 30 mg Documented By: EF Ketorolac Tromethamine (Ketorolac Inj 30 Mg/Ml Vial) 15 mg IVP X1 ONE Stop: 08/12/25 16:44 Ondansetron HCl (Ondansetron Odt 4 Mg Tabrap) 4 mg PO X1 ONE; Protocol Stop: 08/12/25 11:54 Last Admin: 08/12/25 12:10 Dose: 4 mg Documented By: EF As noted Consultations Consultation(s) initiated? (list below): No Diagnosis Differential diagnosis abdominal pain: calculus of kidney Most likely diagnosis given after review of the tests above:: Renal colic secondary to ureteral calculus Admission Indicated Admission indicated?: not indicated Admission Request Was there a request for admission?: No Disposition Plan Disposition Plan: Discharge Discharge Attestation Discharge Attestation: The patient and all family members were given an opportunity to ask questions and understood the discharge instructions. Discharge instructions specifically effects, indications for sooner follow up or return to the emergency department, and the expected course of current diagnosis. Patient condition: Stable Discharge Plan Plan Patient Disposition: HOME (Self Care) Prescriptions/Referrals Prescriptions/Med Rec: New tamsulosin 0.4 mg capsule 0.4 mg PO QDAY Qty: 14 0RF oxycodone-acetaminophen [Percocet] 5-325 mg tablet 1 tab PO Q8H MDD 10mg PRN (Reason: pain) Qty: 3 0RF ketorolac 10 mg tablet 10 mg PO Q8H Qty: 14 0RF Rx Instructions: maximum total duration of 5 days from all oral, intranasal, or parenteral formulations Referrals: No Primary/Family,Physician [Primary Care Provider] - In 1 week Problem List Clinical Impression: Calculus of kidney Patient/Caregiver Discharge Instructions Education Materials: ED Kidney Stone w/ Colic Additional Instructions: Follow up with your primary medical doctor and a urologist within 24 hours. Return to the Emergency Room immediately for any new, worsening, continuing symptoms or any concerns at all. Return to the Emergency Room within 24 hours if you are unable to follow up with your primary medical doctor and a urologist within 24 hours. Print Language: Omani Stand Alone Forms: Nerissa Award Info., Patient Portal Info Letter PA/SIGN BUILDER SUPERVISOR Supervising Physician PA/SIGN BUILDER SUPERVISOR Supervising Physician: Dr. Cruz
[2025-08-12 16:52] LABS: Amphetamine/Methamp Scrn,U Positive (Negative); Barbiturate Screen,Urine Negative (Negative); Benzodiazepines Screen,Urine Negative (Negative); Benzoylecgonine Screen, Ur Negative (Negative); Fentanyl Screen,Urine Negative (Negative); Opiate Screen,Urine Negative (Negative); THC Screen,Urine Negative (Negative)
[2025-08-12 16:53] LABS: Clarity,Urine Cloudy (Clear/Hazy); Color,Urine Lt-Yellow (Lt Yel-Yel)
[2025-08-12] MEDS: SODIUM CHLORIDE 0.9% 1000 ML 1,000 ML 999 ML IV (17:00)
[2025-08-12] MEDS: KETOROLAC INJ 30 MG/ML VIAL 15 MG IVP (17:04)
[2025-08-12 17:42] VITALS: BP 131/82; PULSE 82; RESP 18; O2SAT 100
== END 2025-08-12 18:09 | disposition home or self-care (01) ==
PROVIDERS: Nurse Practitioner Primary Care; Emergency Provider Emergency Medicine
DX: N13.2 Hydronephrosis with renal and ureteral calculous obstruction (principal)
CPT/HCPCS: 36415; 74176; 80053; 80307; 81001; 83690; 84484; 85025; 96372; 96374; 99283; J1885; J7030; Q0162; A9270